=== PATIENT | female | born 1990 | race Two or more races ===

== ENCOUNTER 2017-12-12 18:16 | Emergency (ER) | payer MEDICAID ==
[~2017-12-12] VITALS: Ht 172.7 cm; Wt 73.0 kg
[~2017-12-12 18:16] MED LIST: NORPTMEDS CO
[2017-12-12 18:36] VITALS: BP 125/80
[2017-12-12] MEDS ORDERED: KETOROLAC TROMETH 60MG/2ML VIAL IM ONE (19:45)
[2017-12-12] MEDS ORDERED: cefTRIAXone SOD 1,000 MG VL IM ONE (19:45)
[2017-12-12] MEDS ORDERED: Acetam/CODEINE 120mg/12mg per 5mL UD PO ONE (19:45)
== END 2017-12-12 21:25 | disposition home or self-care (01) ==
LOC: ER 18:16
DX: J02.9 Acute pharyngitis, unspecified (principal); R07.0 Pain in throat
CPT/HCPCS: 96372; 99284; J0696; J1885

== ENCOUNTER 2021-02-12 21:38 | Emergency (ER) | payer MEDICAID ==
[~2021-02-12] VITALS: Ht 175.3 cm; Wt 74.8 kg
[2021-02-13 02:08] VITALS: BP 120/83
[2021-02-13] MEDS ORDERED: HYDROcodone-ACET 7.5/325MG TAB PO ONE (02:45)
[2021-02-13] MEDS ORDERED: IBUPROFEN 400 MG TAB PO ONE (03:00)
== END 2021-02-13 03:37 | disposition home or self-care (01) ==
LOC: ER 21:38
DX: S60.221A Contusion of right hand, initial encounter (principal); W22.8XXA Striking against or struck by other objects, initial encounter; Y93.89 Activity, other specified; Y92.89 Other specified places as the place of occurrence of the external cause; Y99.8 Other external cause status
CPT/HCPCS: 29125; 73130